=== PATIENT | female | born 1940 | race Caucasian/White ===

== ENCOUNTER 2017-03-09 20:21 | Emergency (ER) | payer OTHER ==
[~2017-03-09] VITALS: Ht 147.3 cm; Wt 49.9 kg
--- NOTE | ~2017-03-09 | CR21 ---
[facility] A Service of [facility] & [facility] / [facility] RADIOLOGY TEXT RESULTS PATIENT: GERTRUDE GUTIERRES LOCATION: SED : 38 UNIT #: [id number] AGE: [address]: Omega Jacobo MD SEX: F ORDER DR: [id number] [place] [id number] E MR#: [id number] Acc #: [id number] NAME: GERTRUDE GUTIERRES : 1940 SEX: F STUDY DATE/TIME: 03/09/2017 21:06 UNIT: SED ROOM: STUDY DESCRIPTION: CR Ankle Min 3 Views Rt Attending Physician: Omega Jacobo M.D. Ordering Physician: Omega Jacobo M.D. Primary Care Physician: Barbie Mathias A.P.R.N. MEDICAL IMAGING REPORT This report is preliminary unless electronic signature is present. EXAM Right ankle series. HISTORY Pain entire ankle. Rolled ankle. Symptoms began 5 days ago. TECHNIQUE AP, lateral and oblique radiographs of the right ankle are presented. FINDINGS Normal bony mineralization. Alignment normal. No fracture. Ankle mortise joint is intact. Small plantar calcaneal spur. No acute appearing soft tissue abnormality. There are atherosclerotic arterial calcifications. Dictated by... Lion Severino M.D. THIS IS AN ELECTRONICALLY VERIFIED REPORT Lion Severino M.D. at 03/10/2017 11:32 PM KIRTI/shazia TD: 03/10/2017 09:49 JOB #: [id number] MEDICAL IMAGING REPORT Page 1 of 1
[~2017-03-09 20:21] MED LIST: ADVAIR 250-501 EACH IH; ADVAIR 5001 DISK W/D PO; ALAVERT10 MG PO; ALBUTEROL MININEB NEB; AMOXICILLIN PO; BACTRIM DS TABL1 TAB PO; CALTRATE 600+D PO; COLACE PO; CRESTOR PO; HYDROXYZINE PAM25 MG PO; IRON PILL PO; KCL PO; LASIX PO; LISINOPRIL PO; LISINOPRIL10 MG PO; LOMOTIL WHITE2.5 MG PO; LORATADINE PO; METRONIDAZOLE PO; NORVASC10 MG PO; OMEPRAZOLE20 M2 PO; OYSTER CALCIUM500 MG PO; PAXIL PO; PREDNISONE50 MG PO; PRILOSEC PO; PYRIDIUM; PYRIDIUM PO; REGLAN10 MG PO; ZANTAC PO; [UNRECOGNIZED DRUG - OTHER]
[2017-03-09] MEDS ORDERED: BP MED (20:42)
[2017-03-09] MEDS ORDERED: MED FOR ACID REFLUX (20:42)
== END 2017-03-09 22:32 | disposition home or self-care (01) ==
LOC: SED 20:21
DX: S93.401A Sprain of unspecified ligament of right ankle, initial encounter (principal); Z88.5 Allergy status to narcotic agent; Z88.8 Allergy status to other drugs, medicaments and biological substances; Z91.041 Radiographic dye allergy status; W22.8XXA Striking against or struck by other objects, initial encounter; Y92.89 Other specified places as the place of occurrence of the external cause
CPT/HCPCS: 29540; 73610; 99283